=== PATIENT | female | born 1975 | race American Indian/Alaskan Native ===

== ENCOUNTER 2019-08-07 05:10 | Emergency (ER) | payer SELFPAY ==
[2019-08-07] MEDS ORDERED: ASPIRIN PO ONE (05:18)
[2019-08-07 05:39] LABS: Basophils % (Auto) 0.8 % (0.0-1.8); Eosinophils # (Auto) 0.2 K/mm3 (0.0-0.4); Hematocrit 39.2 % (30.3-42.9); Hemoglobin 12.9 gm/dl (10.1-14.3); Lymphocytes # (Auto) 1.6 K/mm3 (1.2-5.4); Mean Corpuscular HGB Conc 33 % (30-34); Mean Corpuscular Volume 87 fl (79-97); Monocytes # (Auto) 0.4 K/mm3 (0.0-0.8); Platelet Count 254 K/mm3 (140-440); Red Blood Count 4.49 M/mm3 (3.65-5.03); Red Cell Distribution Width 14.3 % (13.2-15.2)
[2019-08-07 06:00] LABS: BUN/Creatinine Ratio 12; Blood Urea Nitrogen 11 mg/dL (7-17); Calcium 9.6 mg/dL (8.4-10.2); Hemolysis Index 6
--- NOTE | 2019-08-07 07:15 | XRay Report ---
CHEST 1 VIEW 0539 INDICATION / CLINICAL INFORMATION: Chest Pain. COMPARISON: None available. FINDINGS: SUPPORT DEVICES: None HEART / MEDIASTINUM: No significant abnormality. LUNGS / PLEURA: No significant pulmonary or pleural abnormality. No pneumothorax. ADDITIONAL FINDINGS: No significant additional findings. IMPRESSION: No significant acute abnormality Signer Name: Won West MD Signed: 08/07/2019 7:11 AM Workstation Name: [email or web address] [email or web address]
[2019-08-07] MEDS ORDERED: ULTRAM PO ONE (07:29)
[2019-08-07] MEDS ORDERED: TORADOL IM ONE (07:29)
[2019-08-07] MEDS ORDERED: NORCO 5/325 PO ONE (07:31)
--- NOTE | 2019-08-07 07:34 | Emergency Department Report ---
ED Chest Pain HPI - General Chief Complaint: Chest Pain Stated Complaint: CHEST PAIN/ANTWAN/HEADACHE Time Seen by Provider: 08/07/19 06:22 Source: patient Mode of arrival: Ambulatory Limitations: No Limitations - History of Present Illness Initial Comments: 44-year-old female with a past medical history of asthma, migraines, and seizures presents to the hospital with complains of sternal chest pain since yesterday. Pain is constant, sharp, worse with movement, palpation, or breathing, and speaking. Pain is rated 10/10 in intensity. She is not taking any medications for pain. Patient denies heavy lifting, chest trauma, or exercising. She also denies cough, fever, shortness of breath, calf tenderness, leg edema, recent travel, history of DVT. Patient also complains of her typical migraine headache Patient does not have a PMD - Related Data Previous Rx's Medication Instructions Recorded Last Taken Type HYDROcodone/APAP 5-325 [[place] 1 each PO Q6HR PRN #15 tablet 08/07/19 Unknown Rx 5/325] Ibuprofen [Motrin] 800 mg PO Q8HR PRN #30 tablet 08/07/19 Unknown Rx Allergies Allergy/AdvReac Type Severity Reaction Status Date / Time acetaminophen [From Percocet] Allergy Unknown Verified 08/07/19 05:18 oxycodone [From Percocet] Allergy Unknown Verified 08/07/19 05:18 Heart Score - HEART Score History: Slightly suspicious EKG: Normal Age: < 45 Risk factors: No known risk factors Troponin: < normal limit HEART Score: 0 ED Review of Systems ROS: Stated complaint: CHEST PAIN/ANTWAN/HEADACHE Other details as noted in HPI Comment: All other systems reviewed and negative ED Past Medical Hx - Past Medical History Previous Medical History?: Yes Hx Headaches / Migraines: Yes Hx Seizures: Yes Hx Asthma: Yes - Surgical History Past Surgical History?: Yes Additional Surgical History: marie clip - Social History Smoking Status: Never Smoker Substance Use Type: None - Medications Home Medications: Home Medications Medication Instructions Recorded Confirmed Last Taken Type HYDROcodone/APAP 5-325 [[place] 1 each PO Q6HR PRN #15 tablet 08/07/19 Unknown Rx 5/325] Ibuprofen [Motrin] 800 mg PO Q8HR PRN #30 tablet 08/07/19 Unknown Rx ED Physical Exam - General Limitations: No Limitations - Other Other exam information: Gen.: No acute distress Head: Atraumatic Eyes: Normal appearance EENT: Moist mucous membranes Neck: Normal appearance, no posterior midline tenderness, no meningismus Chest: Clear to auscultation bilaterally, no wheezes, rales, or tachypnea Cardiovascular: Regular rate and rhythm, reproducible sternal chest wall tenderness Abdomen: Normal appearance, soft, nontender, no rebound or guarding, normal bowel sounds Back: Normal appearance, nontender Extremity: Full range of motion, normal appearance, no calf tenderness or leg edema Neuro: Alert, clear speech, no focal motor or sensory deficit Psychiatric: Appropriate Skin: No rash ED Course Vital Signs 08/07/19 08/07/19 08/07/19 06:23 06:24 06:25 Temperature Pulse Rate 58 L 60 Respiratory 10 L 10 L Rate Blood Pressure 124/78 [Right] O2 Sat by Pulse 98 98 Oximetry 08/07/19 07:30 Temperature 98.2 F Pulse Rate 55 L Respiratory 20 Rate Blood Pressure 132/87 [Right] O2 Sat by Pulse 100 Oximetry HAYES score - Hayes Score Age > 65: (0) No Aspirin use within the Past 7 Days: (0) No 3 or more CAD Risk Factors: (0) No 2 or more Angina events in past 24 hrs: (0) No Known CAD with more than 50% Stenosis: (0) No Elevated Cardiac Markers: (0) No ED Medical Decision Making - Lab Data Result diagrams: 08/07/19 05:24 08/07/19 05:24 Lab Results 08/07/19 08/07/19 Range/Units 05:24 05:24 WBC 4.3 L (4.5-11.0) K/mm3 RBC 4.49 (3.65-5.03) M/mm3 Hgb 12.9 (10.1-14.3) gm/dl Hct 39.2 (30.3-42.9) % MCV 87 (79-97) fl MCH 29 (28-32) pg MCHC 33 (30-34) % RDW 14.3 (13.2-15.2) % Plt Count 254 (140-440) K/mm3 Lymph % (Auto) 37.0 H (13.4-35.0) % [place] % (Auto) 9.0 H (0.0-7.3) % Eos % (Auto) 4.0 (0.0-4.3) % Baso % (Auto) 0.8 (0.0-1.8) % Lymph # 1.6 (1.2-5.4) K/mm3 [place] # 0.4 (0.0-0.8) K/mm3 Eos # 0.2 (0.0-0.4) K/mm3 Baso # 0.0 (0.0-0.1) K/mm3 Seg Neutrophils % 49.2 (40.0-70.0) % Seg Neutrophils # 2.1 (1.8-7.7) K/mm3 Sodium 140 (137-145) mmol/L Potassium 3.8 (3.6-5.0) mmol/L Chloride 100.5 (98-107) mmol/L Carbon Dioxide 26 (22-30) mmol/L Anion Gap 17 mmol/L BUN 11 (7-17) mg/dL Creatinine 0.9 (0.7-1.2) mg/dL Estimated GFR > 60 ml/min BUN/Creatinine Ratio 12 % Glucose 94 (65-100) mg/dL Calcium 9.6 (8.4-10.2) mg/dL Troponin T < 0.010 (0.00-0.029) ng/mL - EKG Data -: EKG Interpreted by Vt EKG shows normal: sinus rhythm, ST-T waves (no stemi) Rate: bradycardia - Radiology Data Radiology results: report reviewed CHEST 1 VIEW 0539 INDICATION / CLINICAL INFORMATION: Chest Pain. COMPARISON: None available. FINDINGS: SUPPORT DEVICES: None HEART / MEDIASTINUM: No significant abnormality. LUNGS / PLEURA: No significant pulmonary or pleural abnormality. No pneumothorax. ADDITIONAL FINDINGS: No significant additional findings. IMPRESSION: No significant acute abnormality - Medical Decision Making She has reproducible sternal chest wall tenderness on exam. EKG, labs, initial troponin unremarkable. Received aspirin, Toradol, and [place] in the ED. Will be discharged home with symptomatic treatment and follow-up - Differential Diagnosis costochondritis, CT, stable angina, PE, dissection Critical Care Time: No Critical care attestation.: If time is entered above; I have spent that time in minutes in the direct care of this critically ill patient, excluding procedure time. ED Disposition Clinical Impression: Costochondritis, acute Disposition: DC-01 TO HOME OR SELFCARE Is pt being admited?: No Does the pt Need Aspirin: No Condition: Stable Instructions: Costochondritis (ED) Additional Instructions: Take the medication as prescribed. Follow-up with your doctor or with the doctor/clinic provided. Return if symptoms worsen as indicated by your discharge instructions. Prescriptions: Ibuprofen [Motrin] 800 mg PO Q8HR PRN #30 tablet PRN Reason: Pain, Moderate (4-6) HYDROcodone/APAP 5-325 [[place] 5/325] 1 each PO Q6HR PRN #15 tablet PRN Reason: Pain Referrals: [facility] [Provider Group] - 3-5 Days VALERIE CHIRINOS MD [Staff Physician] - 3-5 Days Forms: Work/School Release Form(ED) Time of Disposition: 08:05
[2019-08-07 07:58] VITALS: BP 132/87
== END 2019-08-07 08:27 | disposition home or self-care (01) ==
LOC: ED 05:10
DX: M94.0 Chondrocostal junction syndrome [Tietze] (principal); G43.909 Migraine, unspecified, not intractable, without status migrainosus; J45.909 Unspecified asthma, uncomplicated; Z88.6 Allergy status to analgesic agent
CPT/HCPCS: 36415; 71045; 80048; 84484; 85025; 93005; 93010; 96372; 99284; J1885

== ENCOUNTER 2020-01-30 10:30 | Emergency (ER) | payer MEDICARE ==
[2020-01-30] MEDS ORDERED: ONDANSETRON 4 MG/2 ML INJ IV ONE (10:58)
[2020-01-30] MEDS ORDERED: BUTALB/ACETAMINOPHEN/CAFFEINE TAB PO ONE (10:58)
[2020-01-30] MEDS ORDERED: HYDROmorphone 1 MG/1 ML INJ IV ONE ×2 (10:58→12:44)
--- NOTE | 2020-01-30 11:25 | Emergency Department Report ---
HPI - General Chief Complaint: Headache Time Seen by Provider: 01/30/20 10:50 - HPI HPI: Room 5 The patient is a 45-year-old female present with a chief complaint of headache. Patient states she has had a constant occipital headache for the past 3 days. Patient denies any preceding trauma. Patient denies history of fever nausea or vomiting. The patient states her headache was severe to the point she began stammering and repeating herself at times. Patient gives her headache a score of 10/10 ED Past Medical Hx - Past Medical History Hx Headaches / Migraines: Yes Hx Seizures: Yes Hx Asthma: Yes - Surgical History Additional Surgical History: Cerebral aneurysm status post clipping - Family History Family history: no significant - Social History Smoking Status: Never Smoker Substance Use Type: None (Denies illicit drug use), Alcohol (Occasional) - Medications Home Medications: Home Medications Medication Instructions Recorded Confirmed Last Taken Type HYDROcodone/APAP 5-325 [[place] 1 each PO Q6HR PRN #15 tablet 08/07/19 Unknown Rx 5/325] Ibuprofen [Motrin 800 MG tab] 800 mg PO Q8HR PRN #30 tablet 11/28/19 Unknown Rx HYDROcodone/APAP 5-325 [[place] 1 - 2 each PO Q6HR PRN #14 tablet 01/30/20 Unknown Rx 5/325] ED Review of Systems ROS: Stated complaint: SHARP PAIN IN HEAD Other details as noted in HPI Constitutional: denies: fever Eyes: denies: eye pain ENT: denies: throat pain Respiratory: no symptoms reported Cardiovascular: denies: chest pain Endocrine: no symptoms reported Gastrointestinal: denies: nausea, vomiting Genitourinary: denies: dysuria Musculoskeletal: denies: back pain Neurological: headache Physical Exam - Physical Exam Vital Signs: Vital Signs 01/30/20 10:37 Temperature 97.8 F Pulse Rate 74 Respiratory 20 Rate Blood Pressure 120/78 O2 Sat by Pulse 98 Oximetry Physical Exam: GENERAL: The patient is well-developed well-nourished female lying on stretcher not appearing to be in acute distress. [] HEENT: Normocephalic. Atraumatic. Extraocular motions are intact. Patient has moist mucous membranes. NECK: Supple. No meningitic signs are noted. Trachea midline CHEST/LUNGS: Clear to auscultation. There is no respiratory distress noted. HEART/CARDIOVASCULAR: Regular. There is no tachycardia. There is no gallop rub or murmur. ABDOMEN: Abdomen is soft, nontender. Patient has normal bowel sounds. There is no abdominal distention. SKIN: There is no rash. There is no edema. There is no diaphoresis. NEURO: The patient is awake, alert, and oriented. The patient is cooperative. The patient has no focal neurologic deficits. The patient has normal speech. Cranial nerves II through XII grossly intact with no drift MUSCULOSKELETAL: There is no evidence of acute injury. ED Course Vital Signs 01/30/20 10:37 Temperature 97.8 F Pulse Rate 74 Respiratory 20 Rate Blood Pressure 120/78 O2 Sat by Pulse 98 Oximetry - Reevaluation(s) Reevaluation #1: 01/30/20 13:44 Patient resting comfortably. Patient states she feels improved ED Medical Decision Making - Lab Data Result diagrams: 01/30/20 10:57 01/30/20 10:57 Laboratory Tests 01/30/20 01/30/20 01/30/20 10:57 10:57 10:57 WBC 3.8 L RBC 4.61 Hgb 13.0 Hct 39.3 MCV 85 MCH 28 MCHC 33 RDW 14.0 Plt Count 248 Lymph % (Auto) 27.9 [place] % (Auto) 7.5 H Eos % (Auto) 3.6 Baso % (Auto) 0.5 Lymph # 1.0 L [place] # 0.3 Eos # 0.1 Baso # 0.0 Seg Neutrophils % 60.5 Seg Neutrophils # 2.3 PT 14.5 INR 1.11 APTT 30.6 Thrombin Time Sodium 135 L Potassium 3.6 Chloride 100.1 Carbon Dioxide 21 L Anion Gap 18 BUN 25 H Creatinine 1.3 H Estimated GFR 54 BUN/Creatinine Ratio 19 Glucose 89 Calcium 9.5 Troponin T < 0.010 01/30/20 10:57 WBC RBC Hgb Hct MCV MCH MCHC RDW Plt Count Lymph % (Auto) [place] % (Auto) Eos % (Auto) Baso % (Auto) Lymph # [place] # Eos # Baso # Seg Neutrophils % Seg Neutrophils # PT INR APTT Thrombin Time 16.0 Sodium Potassium Chloride Carbon Dioxide Anion Gap BUN Creatinine Estimated GFR BUN/Creatinine Ratio Glucose Calcium Troponin T - EKG Data -: EKG Interpreted by Sd EKG shows normal: sinus rhythm Rate: bradycardia (56 bpm) - EKG Data When compared to previous EKG there are: previous EKG unavailable Interpretation: nonspecific ST-T wave reza (T wave inversions in leads V2, V3) - Radiology Data Radiology results: report reviewed (CT head), image reviewed (CT head) [facility] [address] [place] [address] Cat Scan Report Signed Patient: MIGNON JARQUIN MR#: [id number] : 1975 Acct:[id number] Age/Sex: 45 / F ADM Date: 01/30/20 Loc: ED Attending Dr: Ordering Physician: PIETRO CARNEY MD Date of Service: 01/30/20 Procedure(s): CT head/brain wo con Accession Number(s): [id number] cc: PIETRO CARNEY MD CT BRAIN: 01/30/2020 INDICATION / CLINICAL INFORMATION: MAIN: headache/changes in speech/seizure today, hx of rt frontal AVM. COMPARISON: 10/14/2010 FINDINGS: BRAIN/INTRACRANIAL STRUCTURES: Unenhanced CT images of the brain were obtained. There is no evidence of acute abnormality. Patient has had prior right frontal craniotomy. Right frontal encephalomalacia and evidence of surgical and aneurysm clips are present in this area, unchanged when compared to 2009. There is no evidence of acute ischemic injury, hemorrhage, or mass. There are no abnormal extra-axial fluid collections. EXTRACRANIAL STRUCTURES: Unremarkable. IMPRESSION : No acute abnormality. Stable right frontal postoperative change. All CT scans at this location are performed using dose reduction to ALARA by means of automated exposure control. Signer Name: Archie Garcia MD Signed: 01/30/2020 12:35 PM Workstation Name: [id number] Transcribed By: GABE Dictated By: Archie Garcia MD Electronically Authenticated By: Archie Garcia MD Signed Date/Time: 01/30/20 1235 DD/ 1229 TD/TT: - Differential Diagnosis Headache, migraine, ICH, intracranial mass Critical care attestation.: If time is entered above; I have spent that time in minutes in the direct care of this critically ill patient, excluding procedure time. ED Disposition Clinical Impression: Headache Disposition: DC-01 TO HOME OR SELFCARE Is pt being admited?: No Does the pt Need Aspirin: No Condition: Stable Instructions: Migraine Headache (ED), Acute Headache (ED) Additional Instructions: Return to the emergency department should you develop worsening symptoms, inability to tolerate food or liquids, high fever or any other concerns Prescriptions: HYDROcodone/APAP 5-325 [[place] 5/325] 1 - 2 each PO Q6HR PRN #14 tablet PRN Reason: Pain Referrals: JETHRO LAINEZ MD [Staff Physician] - 3-5 Days (Dr Lainez is a neurologist. Please follow-up with him for further evaluation) Time of Disposition: 13:45
[2020-01-30 11:48] LABS: Basophils % (Auto) 0.5 % (0.0-1.8); Eosinophils # (Auto) 0.1 K/mm3 (0.0-0.4); Eosinophils % (Auto) 3.6 % (0.0-4.3); Hematocrit 39.3 % (30.3-42.9); Lymphocytes % (Auto) 27.9 % (13.4-35.0); Mean Corpuscular HGB Conc 33 % (30-34); Mean Corpuscular Volume 85 fl (79-97); Monocytes # (Auto) 0.3 K/mm3 (0.0-0.8); Monocytes % (Auto) 7.5 % (0.0-7.3); Platelet Count 248 K/mm3 (140-440); Red Blood Count 4.61 M/mm3 (3.65-5.03)
[2020-01-30 11:58] LABS: INR 1.11 (0.87-1.13); Partial Thromboplastin Time 30.6 Sec. (24.2-36.6)
[2020-01-30 12:05] LABS: BUN/Creatinine Ratio 19; Blood Urea Nitrogen 25 mg/dL (7-17); Calcium 9.5 mg/dL (8.4-10.2); Hemolysis Index 0
--- NOTE | 2020-01-30 12:39 | Cat Scan Report ---
CT BRAIN: 01/30/2020 INDICATION / CLINICAL INFORMATION: MAIN: headache/changes in speech/seizure today, hx of rt frontal AVM. COMPARISON: 10/14/2010 FINDINGS: BRAIN/INTRACRANIAL STRUCTURES: Unenhanced CT images of the brain were obtained. There is no evidence of acute abnormality. Patient has had prior right frontal craniotomy. Right frontal encephalomalacia and evidence of surgic al and aneurysm clips are present in this area, unchanged when compared to 2009. There is no evidence of acute ischemic injury, hemorrhage, or mass. There are no abnormal extra-axial fluid collections. EXTRACRANIAL STRUCTURES: Unremarkable. IMPRESSION: No acute abnormality. Stable right frontal postoperative change. All CT scans at this location are performed using dose reduction to ALARA by means of automated expos ure control. Signer Name: Archie Garcia MD Signed: 01/30/2020 12:35 PM Workstation Name: [id number]
[2020-01-30] MEDS ORDERED: SUMAtriptan SUCCINATE 6 MG/0.5 ML INJ SUB-Q ONE (12:44)
[2020-01-30 13:56] VITALS: BP 112/76
== END 2020-01-30 13:57 | disposition home or self-care (01) ==
LOC: ED 10:30
DX: R51 Headache (principal); J45.909 Unspecified asthma, uncomplicated; Z88.6 Allergy status to analgesic agent; Z86.69 Personal history of other diseases of the nervous system and sense organs
CPT/HCPCS: 36415; 70450; 80048; 84484; 85025; 85610; 85670; 85730; 93005; 93010; 96372; 96374; 96375; 96376; 99284; J1170; J2405; J3030

== ENCOUNTER 2020-09-07 10:08 | Emergency (ER) | payer MEDICARE ==
--- NOTE | 2020-09-07 14:20 | Emergency Department Report ---
ED Headache HPI - General Chief Complaint: Headache Stated Complaint: SWELLING IN FOREHEAD Time Seen by Provider: 09/07/20 13:15 Source: patient, RN notes reviewed Exam Limitations: no limitations - History of Present Illness Initial Comments: 45-year-old F Turkish female with past medical history of recurrent migraines and seizure activity whom resides in [place] and Medicare Chet [place] DO of the [facility] as well as neurology service during for her seizures and chronic headaches. Also reports having had AVMs in the right frontal region which was corrected evaluation was reasonable and having some tenderness in that area associated with headache blurred vision she thinks is right-sided weakness so due to her work-up virtual appointment today with advised to come to the emergency department for further evaluation and treatment options. States his pain and symptoms have been going on for over a week in regards to the weakness tingling and occasional visual changes. She reports no chest pain or shortness of breath no palpitations no fevers chills or sweats no neck pain Recent Head Trauma: frequent headaches (Right frontoparietal lobe) Associated Symptoms: vision changes, weakness. denies: loss of consciousness, nausea/vomiting, nasal congestion, nasal drainage, sinus infection, stiff neck Allergies/Adverse Reactions: Allergies oxycodone [From Percocet] Allergy (Verified 01/30/20 10:31) Unknown Home Medications: Ambulatory Orders HYDROcodone/APAP 5-325 [[place] 5/325] 1 each PO Q6HR PRN #15 tablet 08/07/19 Ibuprofen [Motrin 800 MG tab] 800 mg PO Q8HR PRN #30 tablet 11/28/19 HYDROcodone/APAP 5-325 [[place] 5/325] 1 - 2 each PO Q6HR PRN #14 tablet 01/30/20 Butalb/Acetaminophen/Caffeine [Fioricet 50-300-40 mg CAP] 1 cap PO Q8HR PRN #14 cap 09/07/20 ED Review of Systems ROS: Stated complaint: SWELLING IN FOREHEAD Other details as noted in HPI Comment: All other systems reviewed and negative ED Past Medical Hx - Past Medical History Previous Medical History?: Yes Hx Headaches / Migraines: Yes Hx Seizures: Yes Hx Asthma: Yes - Surgical History Additional Surgical History: Cerebral aneurysm status post clipping - Social History Smoking Status: Current Some Day Smoker Substance Use Type: None - Medications Home Medications: Home Medications Medication Instructions Recorded Confirmed Last Taken Type HYDROcodone/APAP 5-325 [[place] 1 each PO Q6HR PRN #15 tablet 08/07/19 Unknown Rx 5/325] Ibuprofen [Motrin 800 MG tab] 800 mg PO Q8HR PRN #30 tablet 11/28/19 Unknown Rx HYDROcodone/APAP 5-325 [[place] 1 - 2 each PO Q6HR PRN #14 tablet 01/30/20 Unknown Rx 5/325] Butalb/Acetaminophen/Caffeine 1 cap PO Q8HR PRN #14 cap 09/07/20 Unknown Rx [Fioricet 50-300-40 mg CAP] ED Physical Exam - General Limitations: No Limitations General appearance: alert, in no apparent distress - Head Head exam: Present: atraumatic, normocephalic - Eye Eye exam: Present: normal appearance, other (Negative funduscopic examination). Absent: nystagmus Pupils: Present: normal accommodation. Absent: irregular, unequal - ENT ENT exam: Present: normal exam, normal orophraynx, mucous membranes moist - Neck Neck exam: Present: normal inspection, full ROM. Absent: tenderness, meningismus, lymphadenopathy - Respiratory Respiratory exam: Present: normal lung sounds bilaterally. Absent: respiratory distress, wheezes, rales, rhonchi, accessory muscle use, decreased breath sounds - Cardiovascular Cardiovascular Exam: Present: regular rate, normal rhythm. Absent: systolic murmur, diastolic murmur, rubs, gallop - GI/Abdominal GI/Abdominal exam: Present: soft, normal bowel sounds - Extremities Exam Extremities exam: Present: normal inspection - Back Exam Back exam: Present: normal inspection - Neurological Exam Neurological exam: Present: alert, oriented X3 - Psychiatric Psychiatric exam: Present: normal affect, normal mood - Skin Skin exam: Present: warm, dry, intact, normal color. Absent: rash ED Course Vital Signs 09/07/20 09/07/20 09/07/20 10:27 13:55 14:18 Temperature 97.7 F 98.3 F 98.3 F Pulse Rate 71 54 L 14 L Respiratory 20 14 14 Rate Blood Pressure 130/84 Blood Pressure 156/104 130/84 [Right] O2 Sat by Pulse 99 98 99 Oximetry ED Medical Decision Making - Lab Data Result diagrams: 09/07/20 14:24 09/07/20 14:24 - Radiology Data [facility] [address] [place] [address] Cat Scan Report Signed Patient: MIGNON JARQUIN MR#: [id number] : 1975 Acct:[id number] Age/Sex: 45 / F ADM Date: 09/07/20 Loc: ED Attending Dr: Ordering Physician: HOLLIS ORTIZ Date of Service: 09/07/20 Procedure(s): CT head/brain wo con Accession Number(s): [id number] cc: HOLLIS ORTIZ CT head/brain wo con INDICATION / CLINICAL INFORMATION: 45 years Female; headache. TECHNIQUE: Routine CT head without contrast. All CT scans at this location are performed using CT dose reduction for ALARA by means of automated exposure control. COMPARISON: The study is compared to the previous CT of 01/30/2020. FINDINGS: BRAIN / INTRACRANIAL CONTENTS: The patient remains status post right frontal craniotomy with underlying encephalomalacia involving the right frontal lobe. There is also a continued a peripheral calcification and the findings correlate with the previous CT. The ventricular system is unchanged in size and configuration. There is no CT evidence of acute intracranial hemorrhage or significant mass effect. ORBITS: No significant abnormality of visualized orbits. SINUSES / MASTOIDS: No significant abnormality in the visualized paranasal sinuses or mastoid air cells. CRANIOCERVICAL JUNCTION: No significant abnormality. ADDITIONAL FINDINGS: None. IMPRESSION: 1. There are stable postoperative changes involving the right frontal lobe. 2. There is no CT ends of acute intracranial hemorrhage or significant interval change from 01/30/2020. Signer Name: Luis Reed MD Signed: 09/07/2020 3:01 PM Workstation Name: [id number] Transcribed By: MR Dictated By: Luis Reed MD Electronically Authenticated By: Luis Reed MD Signed Date/Time: 09/07/20 1501 DD/ 1457 - Medical Decision Making This patient presents with a headache most consistent with migraine. Dif ferential diagnosis includes migraine versus tension type headache. No headache red flags. Neurologic exam without evidence of meningismus, focal neurologic findings.Based on the patient's history and physical there is very low clinical suspicion for significant intracranial pathology. The headache was NOT sudden onset, NOT maximal at onset, there are NO neurologic findings, the patient does NOT have a fever, the patient does NOT have any jaw claudication, the patient does NOT endorse a clotting disorder, patient DENIES any trauma or eye pain and the headache is NOT associated with dizziness or ataxia. Presentation not consistent with acute intracranial bleed to include SAH (lack of risk factors, headache history). Presentation not consistent with acute HOSPICE ADMITTING CLERK infection to include meningitis or brain abscess, Temporal arteritis unlikely, as is acute angle closure glaucoma given history and physical findings. Presentation not consistent with other acute, emergent causes of headache at this time. Plan to treat symptomatically with pain medication. No indication for imaging/LP at this time. Plan: pain medication, CT brain showed no acute processes, serial reassessment Critical care attestation.: If time is entered above; I have spent that time in minutes in the direct care of this critically ill patient, excluding procedure time. ED Disposition Clinical Impression: Neuropathy, Cephalgia, Migraine Disposition: - TO HOME OR SELFCARE Is pt being admited?: No Does the pt Need Aspirin: No Condition: Stable Instructions: Migraine Headache (ED), Acute Headache (ED), Peripheral Neuro vikas (ED) Additional Instructions: Please be sure to follow-up with your neurologist for further evaluation of your chronic recurrent headaches and neuropathy symptoms please take the medications that was prescribed to you by your neurologist and alert them of the change in your symptoms. CT scan today was normal copy has been provided to you for your documentation. Prescriptions: Butalb/Acetaminophen/Caffeine [Fioricet 50-300-40 mg CAP] 1 cap PO Q8HR PRN #14 cap PRN Reason: Headache Referrals: PRIMARY CARE, [Primary Care Provider] - 3-5 Days Howie Cai [Other] - 3-5 Days (Neurology at [facility])
[2020-09-07 14:36] LABS: Basophils % (Auto) 0.4 % (0.0-1.8); Eosinophils # (Auto) 0.2 K/mm3 (0.0-0.4); Eosinophils % (Auto) 4.7 % (0.0-4.3); Hematocrit 39.5 % (30.3-42.9); Hemoglobin 12.8 gm/dl (10.1-14.3); Lymphocytes % (Auto) 43.4 % (13.4-35.0); Mean Corpuscular HGB Conc 32 % (30-34); Mean Corpuscular Volume 87 fl (79-97); Monocytes # (Auto) 0.4 K/mm3 (0.0-0.8); Monocytes % (Auto) 9.1 % (0.0-7.3); Platelet Count 240 K/mm3 (140-440); Red Blood Count 4.53 M/mm3 (3.65-5.03); Red Cell Distribution Width 13.5 % (13.2-15.2)
[2020-09-07 14:53] LABS: Alanine Aminotransferase 6 units/L (7-56); Albumin 4.1 g/dL (3.9-5); BUN/Creatinine Ratio 11; Blood Urea Nitrogen 11 mg/dL (7-17); Hemolysis Index 14
--- NOTE | 2020-09-07 15:06 | Cat Scan Report ---
CT head/brain wo con INDICATION / CLINICAL INFORMATION: 45 years Female; headache. TECHNIQUE: Routine CT head without contrast. All CT scans at this location are performed using CT dos e reduction for ALARA by means of automated exposure control. COMPARISON: The study is compared to the previous CT of 01/30/2020. FINDINGS: BRAIN / INTRACRANIAL CONTENTS: The patient remains status post right frontal craniotomy with underlyi ng encephalomalacia involving the right frontal lobe. There is also a continued a peripheral calcific ation and the findings correlate with the previous CT. The ventricular system is unchanged in size an d configuration. There is no CT evidence of acute intracranial hemorrhage or significant mass effect. ORBITS: No significant abnormality of visualized orbits. SINUSES / MASTOIDS: No significant abnormality in the visualized paranasal sinuses or mastoid air isaiah ls. CRANIOCERVICAL JUNCTION: No significant abnormality. ADDITIONAL FINDINGS: None. IMPRESSION: 1. There are stable postoperative changes involving the right frontal lobe. 2. There is no CT ends of acute intracranial hemorrhage or significant interval change from 01/30/2020. Signer Name: Luis Reed MD Signed: 09/07/2020 3:01 PM Workstation Name: [id number]
[2020-09-07 16:17] VITALS: BP 128/80
== END 2020-09-07 16:26 | disposition home or self-care (01) ==
LOC: ED 10:08
DX: G43.909 Migraine, unspecified, not intractable, without status migrainosus (principal); G62.9 Polyneuropathy, unspecified; F17.200 Nicotine dependence, unspecified, uncomplicated; J45.909 Unspecified asthma, uncomplicated; Z88.8 Allergy status to other drugs, medicaments and biological substances; Z79.899 Other long term (current) drug therapy; Z98.890 Other specified postprocedural states; Z86.69 Personal history of other diseases of the nervous system and sense organs
CPT/HCPCS: 36415; 70450; 80053; 85025